=== PATIENT | male | born 1995 | race Two or more races ===

== ENCOUNTER 2024-02-29 23:11 | Emergency (ER) | payer SELFPAY ==
[~2024-02-29] VITALS: Ht 162.6 cm; Wt 64.2 kg
[2024-02-29 23:53] LABS: BASOPHILS # (AUTO) 0.1 X10'3 (0-0.2); BASOPHILS % (AUTO) 1.1 % (0-1); EOSINOPHILS # (AUTO) 0.2 X10'3 (0-0.9); EOSINOPHILS % (AUTO) 2.4 % (0-6); HEMATOCRIT 52.8 % (42.0-52.0); HEMOGLOBIN 17.4 g/dl (14.0-17.9); LYMPHOCYTES # (AUTO) 3.4 X10'3 (1.1-4.8); LYMPHOCYTES % (AUTO) 49.5 % (21-51); MEAN CORPUSCULAR HEMOGLOBIN 28.6 PG (27.0-31.0); MEAN CORPUSCULAR VOLUME 86.8 FL (78-98); MEAN PLATELET VOLUME 9.5 FL (7.4-10.4); MONOCYTES # (AUTO) 0.3 X10'3 (0-0.9); MONOCYTES % (AUTO) 4.4 % (2-12); NEUTROPHILS # (AUTO) 2.9 X10'3 (1.8-7.7); NEUTROPHILS % (AUTO) 42.6 % (42-75); PLATELET COUNT 234 X10'3 (140-440); RED BLOOD COUNT 6.09 X10'6 (4.70-6.10); RED CELL DISTRIBUTION WIDTH 13.8 % (11.5-14.5); WHITE BLOOD COUNT 6.9 X10'3 (4.5-11.0)
[2024-03-01 00:07] LABS: ALANINE AMINOTRANSFERASE 73 U/L (12-78); ALBUMIN 4.1 G/DL (3.4-5.0); ALBUMIN/GLOBULIN RATIO 0.9 (1.1-1.5); ALKALINE PHOSPHATASE 97 IU/L (46-116); ANION GAP 9 (8-16); ASPARTATE AMINO TRANSFERASE 40 U/L (10-37); BILIRUBIN,TOTAL 0.2 MG/DL (0.1-1.0); BLOOD UREA NITROGEN 4 MG/DL (7-18); BUN/CREATININE RATIO 3.7 (10.0-20.0); CALCIUM 8.9 MG/DL (8.5-10.1); CHLORIDE 105 MMOL/L (99-107); CREATININE 1.07 MG/DL (0.60-1.10); GLUCOSE 102 MG/DL (70-104); LIPASE 45 U/L (16-77); SODIUM 141 MMOL/L (135-145); TOTAL CARBON DIOXIDE 26.9 MMOL/L (24-32); TOTAL PROTEIN 8.7 G/DL (6.4-8.2); eCRCL 85 ML/MIN; eGFR 81 ML/MIN
[2024-03-01] MEDS: ondansetron/PF 4mg/2ml inj IV ONE (01:56)
[2024-03-01] MEDS: ketorolac trometh 15mg/ml vial 15 MG/ML ML IV ONE (01:56)
[2024-03-01] MEDS: normal saline 1000ml 1,000 ML IV ONE (01:56)
[2024-03-01] MEDS ORDERED: ONDA-245 PO (03:08)
[2024-03-01 04:54] VITALS: BP 113/73; PULSE 79; RESP 18; TEMP 98.2; O2SAT 100
== END 2024-03-01 03:30 | disposition home or self-care (01) ==
LOC: ER 23:14
DX: K29.00 Acute gastritis without bleeding (principal)
CPT/HCPCS: 36415; 80053; 83690; 85025; 96361; 96374; 96375; 99284; J1885; J2405; J7030